=== PATIENT | female | born 1950 | race Hispanic/Latino ===

== ENCOUNTER 2019-10-25 02:05 | Emergency (ER) | payer OTHER ==
[~2019-10-25 02:05] MED LIST: METF-446 PO; ROSU40 PO; VERA180T12 PO
[2019-10-25 02:52] LABS: BASOPHILS % (AUTO) 0.3 % (0.0-5.0); EOSINOPHILS % (AUTO) 5.9 % (0.0-8.0); HEMATOCRIT 38.5 % (36-48); LYMPHOCYTES % (AUTO) 22.8 % (21.0-51.0); MEAN CORPUSCULAR HEMOGLOBIN 27.8 pg (27.0-33.0); MEAN CORPUSCULAR HGB CONC 32.5 g/dL (32.0-36.0); MEAN CORPUSCULAR VOLUME 85.7 fL (79-99); MONOCYTES % (AUTO) 7.9 % (3.0-13.0); NEUTROPHILS % (AUTO) 62.6 % (40.0-77.0); PLATELET COUNT (AUTO) 253 K/uL (130-400); RED BLOOD CELL COUNT(AUTO) 4.49 MIL/uL (4.00-5.50); WHITE BLOOD COUNT (AUTO) 15.1 K/uL (4.8-10.8)
[2019-10-25 03:18] LABS: CREATININE 0.9 mg/dL (0.5-1.5); POTASSIUM 3.2 mmol/L (3.5-5.1)
[2019-10-25 03:22] LABS: APPEARANCE,URINE Clear (CLEAR); BILIRUBIN,URINE Negative (NEGATIVE); COLOR,URINE Yellow (YELLOW); GLUCOSE, URINE (UA) Negative (NEGATIVE); KETONES,URINE Trace mg/dL (NEGATIVE); LEUKOCYTE ESTERASE ,URINE Small (NEGATIVE); NITRATE,URINE Negative (NEGATIVE); OCCULT BLOOD,URINE Trace (NEGATIVE); PH,URINE 5.5 (5.0-8.0); PROTEIN,URINE POS 2+ mg/dL (NEGATIVE)
[2019-10-25 03:23] LABS: ALBUMIN 3.5 g/dL (3.5-5.0); BILIRUBIN,TOTAL 0.3 mg/dL (0.2-1.0); TOTAL PROTEIN, SERUM 7.4 g/dL (6.0-8.3)
[2019-10-25] MEDS ORDERED: SODIUM CHLORIDE 0.9% 1000ML 1,000 ML IV ONE ×2 (03:29→04:05)
[2019-10-25 03:32] LABS: BACTERIA,URINE Few /HPF (None Seen); MUCUS,URINE Moderate LPF (None Seen)
[2019-10-25 03:37] LABS: INR 0.92 (0.85-1.15); PARTIAL THROMBOPLASTIN TIME 24.5 SEC (26.3-35.5); PROTHROMBIN TIME 9.7 SEC (9.6-11.6)
[2019-10-25 03:39] LABS: B-TYPE NATRIURETIC PEPTIDE 23 pg/mL (0-100)
[2019-10-25] MEDS ORDERED: CEFTRIAXONE SODIUM 1 GM ONE (04:05)
== END 2019-10-25 05:22 | disposition home or self-care (01) ==
LOC: EDH 02:05
DX: N39.0 Urinary tract infection, site not specified (principal); E86.0 Dehydration; R00.2 Palpitations; E11.65 Type 2 diabetes mellitus with hyperglycemia; R79.1 Abnormal coagulation profile; I10 Essential (primary) hypertension; E78.00 Pure hypercholesterolemia, unspecified; Z90.710 Acquired absence of both cervix and uterus
CPT/HCPCS: 36415; 71045; 74176; 80053; 81001; 82550; 83605 ×2; 83880; 84484; 85025; 85610; 85730; 87040 ×2; 87077; 87088; 87186; 87804 ×2; 93005; 96361; 96374; 96375; 99284; J0696; J7030 ×2

== ENCOUNTER → 2021-06-03 | Outpatient (CLI) | payer MEDICARE | END | disposition home or self-care (01) | LOC: RAH 08:13 | PROVIDERS: ATTEND Family Medicine | DX: Z12.31 Encounter for screening mammogram for malignant neoplasm of breast (principal) | CPT/HCPCS: 77067 ==

== ENCOUNTER → 2023-01-08 | Outpatient (CLI) | payer MEDICARE ==
[~2023-01-08] MED LIST changes: -VERA180T12 PO; +VERA180T61 PO
== END | disposition home or self-care (01) ==
LOC: RAH 08:32
PROVIDERS: ATTEND Family Medicine
DX: Z12.31 Encounter for screening mammogram for malignant neoplasm of breast (principal)
CPT/HCPCS: 77067

== ENCOUNTER 2025-01-26 11:08 | Inpatient (IN) | payer MEDICARE ==
[~2025-01-26] VITALS: Ht 162.6 cm; Wt 58.1 kg
--- NOTE | 2025-01-26 11:17 | ERN ---
ED Note History of Present Illness Stated Complaint: GENERALIZED ABD PAIN Chief Complaint: Abdominal Pain Time Seen by MD: 11:11 Dictation: PATIENT IS A 75-YEAR-OLD FEMALE COMING IN TODAY WITH COMPLAINTS OF PERIUMBILICAL AND RIGHT LOWER QUADRANT PAIN TENDERNESS WITH FEVER ONSET TWO DAYS AND GETTING WORSE TODAY. SHE HAS HAD NAUSEA WITHOUT VOMITING NO DIARRHEA. SEEN BY HER PRIMARY CARE DOCTOR TODAY WHO SENT HER TO THE EMERGENCY ROOM TO RULE OUT APPENDICITIS Allergies: Coded Allergies: No Known Allergies (Verified Allergy, Severe, 02/06/17) Home Meds Reported Medications Rosuvastatin Calcium (Rosuvastatin Calcium) 40 Mg Tablet, 1 TAB PO DAILY 01/26/25 Bisoprolol Fumarate/Hctz (Bisoprolol-Hctz 10-6.25 mg Tab) 10 Mg-6.25 Mg Tablet, 1 TAB PO DAILY 01/26/25 Fluticasone/Umeclidin/Vilanter (Trelegy Ellipta 100-62.5-25) 100-62.5 Blst.w.dev, 1 PUFF PO DAILY 01/26/25 Vit B Cmplx 3/FA/Vit C/Biotin (Suzanne-Suma Rx Tablet) 1 Mg-60 Mg-300 Mcg Tablet, 1 TAB PO DAILY 01/26/25 Discontinued Reported Medications Rosuvastatin Calcium (Crestor) 40 Mg Tab, 40 MG PO HS, TAB 02/06/17 Metformin HCl (Metformin HCl) 1,000 Mg Tablet, 1000 MG PO BID, TAB 02/06/17 Discontinued Scripts Verapamil HCl (Verapamil ER 180Mg Tab) 180 Mg Tablet.er, 180 MG PO DAILY, #30 TAB 3 Refills Prov:ADRIAN SKINNER MD 02/06/17 Past Medical History Past Medical History: Diabetes-Type II, High Cholesterol, Heart Disease, Hypertension Additional Past Medical Hx: SVT Surgical History: Other Surgical History Other: HEART CATH History: Not Applicable RN Note Reviewed/Agreed w/PFSH: Yes Review of System Dictation CONSTITUTIONAL: NEGATIVE EXCEPT FOR HPI FEVER CHILLS HEAD/FACE: NEGATIVE EXCEPT FOR HPI EENT: NEGATIVE EXCEPT FOR HPI RESPIRATORY: NEGATIVE EXCEPT FOR HPI GASTROINTESTINAL/ABDOMINAL: NEGATIVE EXCEPT FOR HPI PERIUMBILICAL AND RIGHT LOWER QUADRANT PAIN TENDERNESS WITH NAUSEA GENITOURINARY: NEGATIVE EXCEPT FOR HPI MUSCULOSKELETAL: NEGATIVE EXCEPT FOR HPI INTEGUMENTARY: NEGATIVE EXCEPT FOR HPI NEUROLOGICAL/PSYCH: NEGATIVE EXCEPT FOR HPI HEMATOLOGIC/LYMPHATIC: NEGATIVE EXCEPT FOR HPI ALL SYSTEMS NEGATIVE, EXCEPT NOTED ABOVE. 13 POINT REVIEW OF SYSTEMS ASSESSED AND ALL NEGATIVE EXCEPT FOR ABOVE. Initial Vital Sign VS Vital Signs Date Time Temp Pulse Resp B/P (MAP) Pulse Ox O2 Delivery O2 Flow Rate FiO2 01/26/25 11:09 101.8 135 20 133/69 98 Room Air 0 01/26/25 12:09 21 Physical Exam Dictation VITAL SIGNS REVIEWED GENERAL APPEARANCE: ALERT, ORIENTED X 3, MODERATE ACUTE DISTRESS, WELL DEVELOPED, NOURISHED. HEAD AND FACE: NON-TRAUMATIC. EYES: PERRL, PINK CONJUNCTIVAS, EYELID NO TRAUMA, ANTERIOR CHAMBER WITH ARCUS SENILIS. EARS: PINNAS INTACT AND NO SIGNS OF TRAUMA OR ERYTHEMA EAR CANALS CLEAR AND NO DISCHARGE TM NO ERYTHEMA NOSE: NO DISCHARGE, NO BLEEDING. OROPHARYNX: MOUTH NORMAL, TONGUE PINK, PHARYNX CLEAR,NO ERYTHEMA, TONSILS NO EXUDATES, NO ABSCESSES NOTED, MUCOUS MEMBRANE MOIST NECK: SUPPLE, NON-TENDER, NO THYROMEGALY, NO MASSES, NO JVD, NO BRUITS BREAST:DEFERRED CHEST:NO TENDERNESS, NO CREPITUS, NO PARADOXICAL MOVEMENT, NO RETRACTIONS LUNGS:CLEAR, WELL-VENTILATED, SYMMETRIC, NO RALES, NO WHEEZING, NO RHONCHI, NO STRIDOR, GOOD BREATH SOUNDS BILATERALLY HEART: TACHYCARDIA, HEART RATE 120S 130S NO MURMUR, NO GALLOPS VASCULAR: NO PERIPHERAL EDEMA, ABDOMEN: SOFT, POSITIVE BOWEL SOUNDS, NONDISTENDED, NO GUARDING, MODERATE PERIUMBILICAL TENDERNESS WITH PALPATION, REBOUND TENDERNESS RIGHT LOWER QUADRANT RECTAL: DEFERRED GENITAL: DEFERRED NEUROLOGICAL: NORMAL SPEECH, MOTOR FUNCTION INTACT, SENSORY FUNCTION INTACT MUSCULOSKELETAL: NECK NONTENDER, FULL RANGE OF MOTION, BACK NONTENDER, FULL RANGE OF MOTION, EXTREMITIES: NONTENDER, FULL RANGE OF MOTION SKIN: COLOR PINK, DRY, NO TURGOR, NO RASH, NO LACERATIONS, NO ABRASIONS, NO CONTUSIONS. LYMPHATIC: DEFERRED Results (Laboratory/Radiology) Laboratory/Radiology Laboratory Tests Test 01/26/25 11:20 01/26/25 11:24 01/26/25 15:27 01/27/25 05:21 Urine Color LIGHT-ORANGE (YELLOW) Urine Appearance CLOUDY (CLEAR) H Urine pH 5.5 (5.0-8.0) Urine Specific [place] 1.022 (1.001-1.031) Urine Protein 50 mg/dL (NEGATIVE) H Urine Glucose (UA) NEGATIVE mg/dL (NEGATIVE) Urine Ketones 20 mg/dL (NEGATIVE) H Urine Occult Blood +- (TRACE) (NEGATIVE) H Urine Nitrate NEGATIVE (NEGATIVE) Urine Bilirubin 1 mg/dL (NEGATIVE) H Urine Urobilinogen 3 mg/dL (0.2-1.0) H Urine Leukocyte Esterase 250 Thomas/uL (NEGATIVE) H Urine RBC 2-5 /HPF (0-1) H Urine WBC 11-25 /HPF (0-1) H Urine Squamous Epithelial Cells FEW /HPF (0-2) Urine Bacteria None /HPF (None Seen) White Blood Count 30.1 K/uL (4.8-10.8) *H Red Blood Count 4.57 MIL/uL (4.00-5.50) Hemoglobin 13.5 g/dL (12.0-16.0) Hematocrit 41.1 % (36-48) Mean Corpuscular Volume 89.9 fL (79-99) Mean Corpuscular Hemoglobin 29.5 pg (27.0-33.0) Mean Corpuscular Hemoglobin Concent 32.8 g/dL (32.0-36.0) Red Cell Distribution Width 13.7 % (11.0-15.5) Platelet Count 219 K/uL (130-400) Mean Platelet Volume 10.8 fL (7.5-10.5) H Immature Granulocyte % (Auto) 1.2 % (0-1) H Neutrophils (%) (Auto) 86.4 % (40.0-77.0) H Lymphocytes (%) (Auto) 4.0 % (21.0-51.0) L Monocytes (%) (Auto) 8.2 % (3.0-13.0) Eosinophils (%) (Auto) 0.0 % (0.0-8.0) Basophils (%) (Auto) 0.2 % (0.0-5.0) Neutrophils # (Auto) 26.1 K/uL (1.8-7.7) H Lymphocytes # (Auto) 1.2 K/uL (1.0-4.8) Monocytes # (Auto) 2.5 K/uL (0.1-1.0) H Eosinophils # (Auto) 0.00 K/uL (0.00-0.70) Basophils # (Auto) 0.06 K/uL (0.00-0.20) Absolute Immature Granulocyte (auto 0.35 K/uL (0-1) Segmented Neutrophils % 79 % (40-70) H Band Neutrophils % 10 % (0-2) H Lymphocytes % (Manual) 7 % (22-44) L Monocytes % (Manual) 4 % (2-9) Nucleated Red Blood Cells 0.0 % (0.0-0.19) Differential Comment MANUAL DIFFERENTIAL White Cell Morphology Comment CONSISTENT W/DIFF Platelet Morphology Comment ADEQUATE Red Blood Cell Morphology NORMAL Sodium Level 133 mmol/L (136-145) L Potassium Level 3.4 mmol/L (3.5-5.1) L Chloride Level 96 mmol/L (101-111) L Carbon Dioxide Level 22 mmol/L (21-32) Blood Urea Nitrogen 26 mg/dL (7-18) H Creatinine 1.8 mg/dL (0.5-1.0) H Glomerular Filtration Rate Calc 29 mL/min (>90) Random Glucose 105 mg/dL (70-105) Lactic Acid Level 3.8 mmol/L (0.8-2.5) H 1.6 mmol/L (0.8-2.5) Total Calcium 9.7 mg/dL (8.5-10.1) Troponin I High Sensitivity 14 ng/L (4-50) Lipase 27 U/L (16-77) Whole Blood Glucose 50 MG/DL (70-110) *L Bedside Glucose Comment Notified Nurse Test 01/27/25 05:49 01/27/25 06:25 White Blood Count 13.7 K/uL (4.8-10.8) #H Red Blood Count 3.61 MIL/uL (4.00-5.50) #L Hemoglobin 10.8 g/dL (12.0-16.0) L Hematocrit 33.0 % (36-48) L Mean Corpuscular Volume 91.4 fL (79-99) Mean Corpuscular Hemoglobin 29.9 pg (27.0-33.0) Mean Corpuscular Hemoglobin Concent 32.7 g/dL (32.0-36.0) Red Cell Distribution Width 13.5 % (11.0-15.5) Platelet Count 119 K/uL (130-400) #L Mean Platelet Volume 10.7 fL (7.5-10.5) H Immature Granulocyte % (Auto) 0.9 % (0-1) Neutrophils (%) (Auto) 91.2 % (40.0-77.0) H Lymphocytes (%) (Auto) 3.9 % (21.0-51.0) L Monocytes (%) (Auto) 3.6 % (3.0-13.0) Eosinophils (%) (Auto) 0.3 % (0.0-8.0) Basophils (%) (Auto) 0.1 % (0.0-5.0) Neutrophils # (Auto) 12.5 K/uL (1.8-7.7) H Lymphocytes # (Auto) 0.5 K/uL (1.0-4.8) L Monocytes # (Auto) 0.5 K/uL (0.1-1.0) Eosinophils # (Auto) 0.04 K/uL (0.00-0.70) Basophils # (Auto) 0.02 K/uL (0.00-0.20) Absolute Immature Granulocyte (auto 0.13 K/uL (0-1) Nucleated Red Blood Cells 0.0 % (0.0-0.19) Sodium Level 133 mmol/L (136-145) L Potassium Level 3.3 mmol/L (3.5-5.1) L Chloride Level 99 mmol/L (101-111) L Carbon Dioxide Level 22 mmol/L (21-32) Blood Urea Nitrogen 24 mg/dL (7-18) H Creatinine 1.2 mg/dL (0.5-1.0) H Glomerular Filtration Rate Calc 48 mL/min (>90) Random Glucose 181 mg/dL (70-105) #H Total Calcium 8.6 mg/dL (8.5-10.1) Whole Blood Glucose 121 MG/DL (70-110) #H PATIENT: JERILYN PAN MR#: [id number] : 1950 SEX: F AGE: 75 LOCATION: [facility] ORDER 1343 STATUS: REG REPORT#: [id number] SERVICE 134 REASON: Periumbilical and right lower quadrant pain tenderness 30 K WBCs ORDERING PHYSICIAN: VINCENT MALAVE MARKET RESEARCH EXECUTIVE PROCEDURE: ABD PEL WO - CT ABDOMEN/PELVIS W/O CONTRAST CT ABDOMEN/PELVIS W/O CONTRAST HISTORY: Pain COMPARISON: 10/25/2019 TECHNIQUE: Multiple sequential axial images of the abdomen and pelvis were obtained from the dome of the diaphragm through symphysis pubis. Patient was not given contrast through intravenous route. Oral contrast was not given. FINDINGS: No pleural effusion is seen bilaterally. There is no evidence of parenchymal disease or pulmonary nodule of the visualized lower lungs. Degenerative changes of the thoracolumbar spine are present. The heart is not enlarged. Liver measures 15 cm. Gallstones are seen in the gallbladder. Small hiatal hernia is seen. The liver, spleen, adrenal glands and pancreas are unremarkable. There is mild right hydronephrosis with 4 mm renal stone in the right UP junction. Right renal atrophy is seen. No hydronephrosis is seen of left kidney. There is fluid-filled small bowel loops and colon may be related to enterocolitis. No evidence of renal stone is seen. Fecal material is seen in the colon. There are normal size retroperitoneal and mesenteric lymph nodes. No ascites is seen. Atherosclerotic changes are present. There is cecal wall thickening. Nonspecific mesenteric fat stranding is seen worse in the right lower abdomen. Appendix is not well seen limiting evaluation. Pelvic sidewalls are symmetric bilaterally. Bladder is well distended without wall thickening. IMPRESSION: 1. There is mild right hydronephrosis with 4 mm renal stone in the right UP junction. Right renal atrophy is seen. No hydronephrosis is seen of left kidney. There is fluid-filled small bowel loops and colon may be related to enterocolitis. There is cecal wall thickening. Nonspecific mesenteric fat stranding is seen worse in the right lower abdomen. Appendix is not well seen limiting evaluation. 2. Gallstones in the gallbladder. Labs Reviewed?: Yes EKG Comment: EKG SINUS TACHYCARDIA/HEART RATE 114/AXIS NORMAL/EIGHT LEFT ATRIAL ENLARGEMENT ED Course ED Course Orders Procedure Category Date Status Time Cbc With Differential LAB 01/26/25 Complete 11:13 Blood Cult MAL 01/26/25 In Process 11:13 Urinalysis Profile LAB 01/26/25 Complete 11:13 Troponin I High LAB 01/26/25 Complete Sensitivity 11:13 Lactic Acid LAB 01/26/25 Complete 11:13 Basic Metabolic Panel LAB 01/26/25 Complete 11:13 0.9%Nacl 1000ml (Ns PHA 01/26/25 Complete 1000ml) 11:30 Morphine 2mg Syg PHA 01/26/25 Complete (Morphine 2mg Syg) 11:30 Ondansetron 4mg Inj PHA 01/26/25 Complete (Zofran 4mg Inj) 11:30 Lipase LAB 01/26/25 Complete 11:13 12 Lead Ekg Tracing- EKG 01/26/25 Resulted Technical 11:34 Zosyn 3.375gm+Ns 50ml PHA 01/26/25 Complete (Zosyn 3.375gm+Ns 11:36 0.9%Nacl 1000ml (Ns PHA 01/26/25 Complete 1000ml) 12:00 Culture Urine MAL 01/26/25 In Process 11:52 Manual Differential LAB 01/26/25 Complete 11:24 Ct Abdomen/Pelvis W/O CT 01/26/25 Resulted Contrast 13:42 Lactic Acid (Removed) LAB 01/26/25 Complete 14:36 Admit Orders ADM 01/26/25 Transmitted 16:21 Edm Admit Bridge Order ADM 01/26/25 Transmitted 16:21 Cbc With Differential LAB 01/27/25 Complete 04:00 Cbc With Differential LAB 01/28/25 Verified 04:00 Cbc With Differential LAB 01/29/25 Verified 04:00 Basic Metabolic Panel LAB 01/27/25 Complete 04:00 Basic Metabolic Panel LAB 01/28/25 Verified 04:00 Basic Metabolic Panel LAB 01/29/25 Verified 04:00 Vital Signs Every 4 CPOE 01/26/25 Transmitted Hours 17:22 Activity: Ambulate W/ CPOE 01/26/25 Transmitted Assist 17:22 Nothing By Mouth DIET 01/27/25 Transmitted Breakfast O2 Order RT 01/26/25 Transmitted 17:22 Lactated Ringers PHA 01/26/25 In Process 1000ml (Lactated 17:30 Cefepime Hcl 1 Gm PHA 01/26/25 In Process Vial (Maxipime 1 Gm Vi 17:30 Acetaminophen 325 Tab PHA 01/26/25 In Process (Tylenol 325mg Tab 17:30 Acetaminophen 650mg PHA 01/26/25 In Process Supp (Tylenol 650mg 17:30 Ondansetron 4mg Inj PHA 01/26/25 In Process (Zofran 4mg Inj) 17:30 Hydralazine 20mg Inj PHA 01/26/25 In Process (Apresoline 20mg In 17:30 Apply Scds CPOE 01/26/25 Transmitted 17:22 Admit Orders ADM 01/26/25 Transmitted 17:22 Condition: CPOE 01/26/25 Transmitted 17:22 Initiate FITZ 01/26/25 In Process Hyperglycemia Protoco 17:22 Metronidazole PHA 01/26/25 In Process 500mg/100ml Bag 22:00 Pantoprazole 40mg Inj PHA 01/26/25 In Process (Protonix 40mg Inj 21:00 Vte Mod Risk NOTIF 01/26/25 Transmitted Notification 23:13 Notf Eval Request NOTIF 01/26/25 Transmitted Dietitian 23:13 Dextrose 50%-Water PHA 01/27/25 Complete (D50w) 05:23 Current Medications Medications (Trade) Dose Ordered Sig/Jerald Route PRN Reason Start Time Stop Time Status Last Admin Dose Admin Morphine Sulfate (morPHINE 2MG SYG) 2 mg ONCE ONCE IVP 01/26/25 11:30 01/26/25 11:31 DC 01/26/25 11:36 Ondansetron HCl (zoFRAN 4MG INJ) 4 mg ONCE ONCE IVP 01/26/25 11:30 01/26/25 11:31 DC 01/26/25 11:36 Piperacillin Sod/ Tazobactam Sod 50 ml @ 200 mls/hr ONCE STAT IVPB 01/26/25 11:36 01/26/25 11:50 DC 01/26/25 12:47 Sodium Chloride 1,000 ml @ 0 mls/hr ONCE ONCE IV 01/26/25 11:30 01/26/25 11:31 DC 01/26/25 11:29 Sodium Chloride 1,728 ml @ 576 mls/hr ONCE ONCE IV 01/26/25 12:00 01/26/25 14:59 DC 01/26/25 12:47 Vital Signs Date Time Temp Pulse Resp B/P (MAP) Pulse Ox O2 Delivery O2 Flow Rate FiO2 01/27/25 04:22 98.6 99 18 111/65 100 Room Air 01/27/25 04:00 98.2 78 20 121/80 95 Room Air 21 01/27/25 00:00 97.9 89 18 108/57 97 Room Air 2.0 24 01/26/25 22:50 98 Room Air* 0 21 25 22:40 83 18 102/53 97 Room Air* 0 21 01/26/25 21:29 98.2 107 18 101/51 97 Room Air* 0 01/26/25 18:25 98.8 114 19 138/59 97 Room Air* 0 01/26/25 16:38 98.8 104 16 124/60 96 Room Air* 0 01/26/25 12:09 98.8 113 14 122/59 99 Room Air* 0 01/26/25 11:09 101.8 135 20 133/69 98 Room Air 0 1138/LACTIC ACID 3.8. WE WILL GIVE 30 PER KILOS FLUIDS, ZOSYN 3.375 IV PIGGYBACK NOW. ANTICIPATE ADMISSION AFTER RECEIVING RESULTS FROM CT 1410/patient is still pending CT reading. Lactic acidosis has been addressed with IV fluid resuscitation and broad-spectrum antibiotics pending admission 1620/SPOKE WITH JOSEF DUKE HOSPITALIST REVIEWED CT LABS AND INTERVENTIONS FOR SEPSIS TO INCLUDE FLUID RESUSCITATION BROAD-SPECTRUM ANTIBIOTICS HE AGREED TO PROCEED. HEART Score Response (Comments) Value EKG: Repolarization changes 1 Age: > 65yrs (+2) 2 Risk Factors: 1-2 risk factors (+1) 1 Initial Troponin: Normal limit (0) 0 Total 4 Medical Decision Making MDM MDM: DIFFERENTIAL DIAGNOSIS: APPENDICITIS VERSUS DIVERTICULITIS/HE RNIA/UTI/PYELONEPHRITIS/ENTER COLITIS/IBS/ACS RATIONALE: TESTS CONSIDERED AND ORDERED SECONDARY TO SHARED DECISION MAKING INCLUDE: LABS, ECG AND RADIOLOGY PREVIOUS OUTSIDE RECORDS REVIEWED: OLD ER VISITS. RISK OF COMPLICATION AND/OR MORBIDITY OR MORTALITY OF PATIENT MANAGEMENT: MODERATE MEDICATIONS-PER MEDICATION RECONCILIATION NEED FOR HOSPITALIZATION: PATIENT DOES MEET CRITERIA FOR HOSPITALIZATION. PATIENT WILL NEED BE ADMITTED FOR FLUID RESUSCITATION MANAGEMENT OF HER SEPSIS AND COLITIS NEED FOR EMERGENCY MAJOR/MINOR SURGERY: NO THERE ARE NO SOCIAL CONCERNS WITH THIS PATIENT. PRESCRIPTION DRUG MANAGEMENT PRESCRIPTIONS WILL INCLUDE SYMPTOMATIC CARE PATIENT'S PRIOR EXTERNAL MEDICAL RECORDS FROM OTHER ER VISITS WERE REVIEWED BY ME INDICATED. PRIOR TESTING AND RESULTS FROM PREVIOUS VISITS WERE REVIEWED. PRIOR TESTS WERE TAKEN INTO ACCOUNT WITH MEDICAL DECISION MAKING AND RESOURCE UTILIZATION, INDEPENDENT HISTORIAN/HISTORIANS WERE USED TO OBTAIN COMPLETE MEDICAL HISTORY. I INDEPENDENTLY INTERPRETED THE TEST THAT WERE PERFORMED, RESULTS WERE REVIEWED BY ME AND CONSIDERED FINDINGS ON RADIOLOGY IF ORDERED. MEDICAL MANAGEMENT AND EXAMINATION INTERPRETATION DISCUSSIONS WERE HAD BY ME WITH OTHER QUALIFIED HEALTHCARE PROFESSIONALS INDICATED FOR THE PATIENT'S CARE. DX & DISP Disposition: Inpatient Departure Impression: Primary Impression: Infectious colitis, enteritis, and gastroenteritis Additional Impressions: Hyponatremia, KEVIN (acute kidney injury), Acute cystitis with hematuria, Sepsis Critical Time: 30 minutes (Critical Care Procedure NoteAuthorized and Performed by: meTotal critical care time: Approximately 36 minutesDue to a high probability of clinically significant, life threatening deterioration, the patient required my highest level of preparedness to intervene emergently and I personally spent this critical care time directly and personally managing the patient. This critical care time included obtaining a history; examining the patient; pulse oximetry; ordering and review of studies; arranging urgent treatment with development of a management plan; evaluation of patient's response to treatment; frequent reassessment; and, discussions with other providers.This critical care time was performed to assess and manage the high probability of imminent, life-threatening deterioration that could result in multi-organ failure. It was exclusive of separately billable procedures and treating other patients and teaching time.Please see MDM section and the rest of the note for further information on patient assessment and treatment.) Condition: Stable Referrals: CHARLEY BELL MD (PCP) Time of Disposition: 15:16 I have reviewed the case, and I agree with, Diagnosis and Plan I performed a substantive portion of the visit. I have reviewed and personally made and approve the management plan that is documented in the notes by myself with KISHORE/resident. I acknowledged full responsibility for the patient's management plan. 75-year-old female meets sepsis criteria, likely GI in nature. Received 30 cc/kg of fluids, antibiotics. On sepsis focused re-evaluation patient was stable vital signs. Cap refill less than 2 seconds, stable perfusion. VINCENT MALAVE NP Jan 26, 2025 11:17 MILADYS LAZO DO Jan 27, 2025 07:39
[2025-01-26] MEDS: 0.9%NACL 1000ML 1,000 ML IV ONE (11:29)
[2025-01-26] MEDS: ondanSETRON 4MG INJ IVP ONE (11:36)
[2025-01-26] MEDS: morPHINE 2 MG SYG IVP ONE (11:36)
[2025-01-26 11:38] LABS: BASOPHILS # (AUTO) 0.06 K/uL (0.00-0.20); BASOPHILS % (AUTO) 0.2 % (0.0-5.0); HEMATOCRIT 41.1 % (36-48); IMMATURE GRANULOCYTE ABSOLUTE 0.35 K/uL (0-1); LYMPHOCYTES # (AUTO) 1.2 K/uL (1.0-4.8); MEAN CORPUSCULAR HEMOGLOBIN 29.5 pg (27.0-33.0); MEAN CORPUSCULAR HGB CONC 32.8 g/dL (32.0-36.0); MEAN CORPUSCULAR VOLUME 89.9 fL (79-99); MONOCYTES # (AUTO) 2.5 K/uL (0.1-1.0); MONOCYTES % (AUTO) 8.2 % (3.0-13.0); NEUTROPHILS # (AUTO) 26.1 K/uL (1.8-7.7); NEUTROPHILS % (AUTO) 86.4 % (40.0-77.0); PLATELET COUNT (AUTO) 219 K/uL (130-400); RED BLOOD CELL COUNT(AUTO) 4.57 MIL/uL (4.00-5.50); RED CELL DISTRIBUTION WIDTH 13.7 % (11.0-15.5)
[2025-01-26 11:43] LABS: APPEARANCE,URINE CLOUDY (CLEAR); BILIRUBIN,URINE 1 mg/dL (NEGATIVE); COLOR,URINE LIGHT-ORANGE (YELLOW); GLUCOSE, URINE (UA) NEGATIVE (NEGATIVE); KETONES,URINE 20 mg/dL (NEGATIVE); LEUKOCYTE ESTERASE ,URINE 250 Leu/uL (NEGATIVE); NITRATE,URINE NEGATIVE (NEGATIVE); PH,URINE 5.5 (5.0-8.0); PROTEIN,URINE 50 mg/dL (NEGATIVE); UROBILINOGEN,URINE 3 mg/dL (0.2-1.0)
[2025-01-26 11:44] LABS: CREATININE 1.8 mg/dL (0.5-1.0); POTASSIUM 3.4 mmol/L (3.5-5.1)
[2025-01-26 11:52] LABS: ADD UA MICROSCOPIC YES
[2025-01-26 11:56] LABS: WHITE BLOOD COUNT (AUTO) 30.1 K/uL (4.8-10.8)
[2025-01-26 12:00] LABS: MUCUS,URINE FEW LPF (None Seen); SQUAMOUS EPITHELIAL CELL,UR FEW /HPF (0-2)
[2025-01-26] MEDS: ZOSYN 3.375GM+NS 50ML 50 ML IVPB STA (12:47)
--- NOTE | 2025-01-26 13:18 | EKG ---
[facility] Test Date: 2025-01-26 Test Time: 11:46:43 Pat Name: JERILYN PAN Department: [facility] Room: ED Gender: F Hvac Engineer: [id number] : 1950 Requested By: VINCENT MALAVE Order Number: [id number] Reading MD: Robinson Bahena Measurements Intervals [place] Rate: 114 P: 79 DC: 157 QRS: -19 QRSD: 88 T: 65 QT: 328 QTc: 441 Interpretive Statements Sinus tachycardia Atrial premature complexes Compared to ECG 10/25/2019 02:22:32 Sinus rhythm no longer present T-wave abnormality no longer present Possible ischemia no longer present Electronically Signed On 01-26-2025 16:58:35 CDT by Robinson Bahena Please click the below link to view image of tracing.
[2025-01-26 13:52] LABS: BAND NEUTROPHILS % (MANUAL) 10 % (0-2); LYMPHOCYTES % (MANUAL) 7 % (22-44); MAN.DIFF COMMENT-IMPRESSION MANUAL DIFFERENTIAL; MONOCYTES % (MANUAL) 4 % (2-9); PLATELET MORPHOLOGY COMMENT ADEQUATE; SEGMENTED NEUTROPHILS % 79 % (40-70); TOTAL CELLS COUNTED 100; WBC MORPHOLOGY CONSISTENT W/DIFF
--- NOTE | 2025-01-26 14:54 | HMCIMG ---
CT ABDOMEN/PELVIS W/O CONTRAST HISTORY: Pain COMPARISON: 10/25/2019 TECHNIQUE: Multiple sequential axial images of the abdomen and pelvis were obtained from the dome of the diaphragm through symphysis pubis. Patient was not given contrast through intravenous route. Oral contrast was not given. FINDINGS: No pleural effusion is seen bilaterally. There is no evidence of parenchymal disease or pulmonary nodule of the visualized lower lungs. Degenerative changes of the thoracolumbar spine are present. The heart is not enlarged. Liver measures 15 cm. Gallstones are seen in the gallbladder. Small hiatal hernia is seen. The liver, spleen, adrenal glands and pancreas are unremarkable. There is mild right hydronephrosis with 4 mm renal stone in the right UP junction. Right renal atrophy is seen. No hydronephrosis is seen of left kidney. There is fluid-filled small bowel loops and colon may be related to enterocolitis. No evidence of renal stone is seen. Fecal material is seen in the colon. There are normal size retroperitoneal and mesenteric lymph nodes. No ascites is seen. Atherosclerotic changes are present. There is cecal wall thickening. Nonspecific mesenteric fat stranding is seen worse in the right lower abdomen. Appendix is not well seen limiting evaluation. Pelvic sidewalls are symmetric bilaterally. Bladder is well distended without wall thickening. IMPRESSION: 1. There is mild right hydronephrosis with 4 mm renal stone in the right UP junction. Right renal atrophy is seen. No hydronephrosis is seen of left kidney. There is fluid-filled small bowel loops and colon may be related to enterocolitis. There is cecal wall thickening. Nonspecific mesenteric fat stranding is seen worse in the right lower abdomen. Appendix is not well seen limiting evaluation. 2. Gallstones in the gallbladder. CT was performed with one or more following dose reduction techniques: automated exposure control, adjustment of the mA and kv according to patient's size, or use of a iterative reconstruction technique.
[2025-01-26] MEDS ORDERED: hydrALAZine 20MG/ML VIAL IV PRN (17:30)
[2025-01-26] MEDS ORDERED: acetaMINOPHEN 650 MG SUPPOSITORY RC PRN (17:30)
[2025-01-26] MEDS ORDERED: ondanSETRON 4MG INJ IVP PRN (17:30)
[2025-01-26] MEDS: ceFEPime HCL 1 GM VIAL IVP SCH (18:50)
[2025-01-26] MEDS: LACTATED RINGERS 1000ML 1,000 ML IV SCH (18:51)
[2025-01-26] MEDS: acetaMINOPHEN 325 MG TAB PO PRN (18:51)
[2025-01-26] MEDS: PANTOPrazole 40 MG/VIAL IVP SCH (21:12)
[2025-01-26] MEDS: metRONIDazole 500MG/100ML BAG 100 ML IVPB SCH (21:12)
[2025-01-26 21:40] VITALS: TEMP 98.2
[2025-01-26 22:50] VITALS: O2SAT 98
[2025-01-26] MEDS ORDERED: ROSU40TA88 PO (23:26)
[2025-01-26] MEDS ORDERED: BISO-1 PO (23:26)
[2025-01-26] MEDS ORDERED: FOLI1TAB85 PO (23:26)
[2025-01-26] MEDS ORDERED: FLUT1BLS3 PO (23:26)
[2025-01-27] VITALS (9 sets, daily range): BP systolic 101–136; BP diastolic 49–80; PULSE 78–101; RESP 18–22; TEMP 97.9–98.6; O2SAT 100
[2025-01-27] MEDS: DEXTROSE 50%-WATER 50 ML DISP.SYRIN IV ONE ×2 (05:26→11:40)
[2025-01-27 06:05] LABS: BASOPHILS # (AUTO) 0.02 K/uL (0.00-0.20); BASOPHILS % (AUTO) 0.1 % (0.0-5.0); EOSINOPHILS # (AUTO) 0.04 K/uL (0.00-0.70); EOSINOPHILS % (AUTO) 0.3 % (0.0-8.0); IMMATURE GRANULOCYTE ABSOLUTE 0.13 K/uL (0-1); LYMPHOCYTES # (AUTO) 0.5 K/uL (1.0-4.8); LYMPHOCYTES % (AUTO) 3.9 % (21.0-51.0); MEAN CORPUSCULAR HEMOGLOBIN 29.9 pg (27.0-33.0); MEAN CORPUSCULAR HGB CONC 32.7 g/dL (32.0-36.0); MEAN CORPUSCULAR VOLUME 91.4 fL (79-99); MONOCYTES # (AUTO) 0.5 K/uL (0.1-1.0); MONOCYTES % (AUTO) 3.6 % (3.0-13.0); NEUTROPHILS # (AUTO) 12.5 K/uL (1.8-7.7); NEUTROPHILS % (AUTO) 91.2 % (40.0-77.0); PLATELET COUNT (AUTO) 119 K/uL (130-400); RED BLOOD CELL COUNT(AUTO) 3.61 MIL/uL (4.00-5.50); RED CELL DISTRIBUTION WIDTH 13.5 % (11.0-15.5); WHITE BLOOD COUNT (AUTO) 13.7 K/uL (4.8-10.8)
[2025-01-27 06:27] LABS: CREATININE 1.2 mg/dL (0.5-1.0); POTASSIUM 3.3 mmol/L (3.5-5.1)
--- NOTE | 2025-01-27 11:30 | NUR ---
accucheck 49, asymptomatic. d50% injection administered. Julia BLACK aware
[2025-01-27] MEDS: DEXTROSE 5%-LACTATED RINGERS 1,000 ML IV SCH (11:44)
[2025-01-27] MEDS: acetaMINOPHEN WITH coDEINE 1 TAB TAB PO PRN (14:44)
--- NOTE | 2025-01-27 16:04 | NUR ---
DCP -- Home Patient states lives with Umer Mosher, Son [phone] and nephew in a rental house with walk in shower. States she is retired from [employer] and [employer], remains independent and drives self. States able to complete ADL's on her own. Denies medical devices. Denies home health services, home care provider or dialysis. PCP - Tarah Parikh MD Pharmacy - [facility]. Upon discharge, Umer Mosher, Son [phone] home and assist with care, as needed. Addendum: 01/27/25 at 1608 by NELIA PATHAK RN CM Amended: Links added.
--- NOTE | 2025-01-27 16:12 | NUR ---
Notes: Met with pt. Pt reports good appetite, 100% PO intake, NKFA, No N/V, Last BM 01/27/2025, visits with PCP every 3 months, has never had a food allergy test, BG monitoring every morning, 80 lb. (38%)wt. loss due to Mounjaro medication in 1 year, has sustained wt]. Spoke to pt about Enterocolitis and its relation to food allergies specifically shellfish. Pt reports eating oysters and having diarrhea for a week. Suggested to get a food allergy test done with PCP. Pt reports she has an appointment with PCP on 02/10/2025 and will get that done. Spoke to nursing. Nursing reports pt not tolerating regular food, pt is currently on clear liquid ability to tolerate advancement, does not foresee pt needing EN. Preformed NFPE during visit. Observed moderate muscle loss due to slightly depressed buccal and interosseous muscle, protruding clavicle and deltoid, and moderate muscle loss due to thin, minimal gastrocnemius muscle. Nutrition Concerns: Recommendations: Advance to GI Soft/Obion Diet + 60 gm cho + HH diet + low residue when medically feasible + Ensure Max TID with all days FA: shellfish Provide NCS while Pt on CLD + prostat jello TID w/ trays Food allergy test administered by PCP Order A1C and lipid panel with AM labs Order vit. D and b12 labs to rule out deficiencies with AM labs Monitor weight, Reweigh as possible Monitor electrolytes, Replenish electrolytes as protocol Monitor goals of care RD to follow + available for consult per protocol Dietetic Student, Adry Dorsey Addendum: 01/27/25 at [address] Amended: Links added.
[2025-01-27 17:06] LABS: CHOLESTEROL 128 mg/dL (<200); HDL CHOLESTEROL 53 mg/dL (35-85); LDL DIRECT 45 mg/dL (0-99); TRIGLYCERIDES 79 mg/dL (30-200)
--- NOTE | 2025-01-27 19:11 | HP ---
[facility] HISTORY & PHYSICAL Date Patient Seen: Jan 27, 2025 Time of Visit: 1214 Supervising Physician: Dr. Conn Primary Care Physician: Dr. Tarah Parikh Outpatient Specialists: [ ] Inpatient Consults: na PROBLEM LIST: Acute severe sepsis without shock likely secondary to enterocolitis and complicated cystitis Acute kidney injury likely secondary to ATN Right hydronephrosis with4 mm renal stone in the right up junction per CT abdomen 01/26/[address] abdomen 01/26/2025 Acute complicated cystitis Hypertension Hyperlipidemia Diabetes mellitus type 2 with hyperglycemia HPI: PATIENT IS A 75-YEAR-OLD FEMALE COMING IN TODAY WITH COMPLAINTS OF PERIUMBILICAL AND RIGHT LOWER QUADRANT PAIN TENDERNESS WITH FEVER ONSET TWO DAYS AND GETTING WORSE TODAY. SHE HAS HAD NAUSEA WITHOUT VOMITING NO DIARRHEA. SEEN BY HER PRIMARY CARE DOCTOR TODAY WHO SENT HER TO THE EMERGENCY ROOM TO RULE OUT APPENDICITIS Patient was seen and examined by bedside with no family present. Patient is awake alert able to answer simple questions appropriately. Patient denies any chest pain or shortness of breadth. Denies any nausea vomiting does report abdominal pain, patient is tender to palpation to right upper quadrant and right lower quadrant. Patient's CT abdomen shows right hydronephrosis with4 mm renal stone to the right upper junction, and acute enterocolitis. Patient also noted to have urinary tract infection we will follow up with the urine culture. At this time we will order a abdominal ultrasound and follow up with results. Patient to continue on IV antibiotics. Patient's serum creatinine level noted to be trending down today 1.2 yesterday 1.8. Patient's WBCs trending down today 13.7 yesterday 30.1. We will continue to monitor closely. PAST MEDICAL HX: see above PAST SURGICAL HX: noncontributory SOCIAL HISTORY: No tobacco, ETOH, or illicit drug use Coded Allergies: No Known Allergies (Verified Allergy, Severe, 02/06/17) REVIEW OF SYSTEMS: 12 point ROS reviewed with patient. Pertinent positives mentioned above. Otherwise negative. PHYSICAL EXAM: GENERAL: alert, weak, awake oriented x 3 HEENT: EOMI, Sclera non icteric, moist mucosa NECK: Supple, no JVD, trachea midline LUNGS: Clear breath sounds bilaterally. No wheezes HEART: Regular rate and rhythm. Normal S1 and S2, without murmurs ABD: Abdomen soft, nontender. Bowel sounds present EXT: No clubbing cyanosis or edema NEURO: Alert and oriented to person, follows commands Vital Signs (last 8hr) Date Time Temp Pulse Resp B/P (MAP) Pulse Ox O2 Delivery O2 Flow Rate FiO2 01/27/25 16:32 98.1 90 19 110/53 96 01/27/25 12:00 97.9 85 22 106/49 98 LABS: Hematology Labs: Test 01/27/25 05:49 01/26/25 11:24 Range/Units White Blood Count 13.7 #H 4.8-10.8 K/uL Red Blood Count 3.61 #L 4.00-5.50 MIL/uL Hemoglobin 10.8 L 12.0-16.0 g/dL Hematocrit 33.0 L 36-48 % Mean Corpuscular Volume 91.4 79-99 fL Mean Corpuscular Hemoglobin 29.9 27.0-33.0 pg Mean Corpuscular Hemoglobin Concent 32.7 32.0-36.0 g/dL Red Cell Distribution Width 13.5 11.0-15.5 % Platelet Count 119 #L 130-400 K/uL Mean Platelet Volume 10.7 H 7.5-10.5 fL Immature Granulocyte % (Auto) 0.9 0-1 % Neutrophils (%) (Auto) 91.2 H 40.0-77.0 % Lymphocytes (%) (Auto) 3.9 L 21.0-51.0 % Monocytes (%) (Auto) 3.6 3.0-13.0 % Eosinophils (%) (Auto) 0.3 0.0-8.0 % Basophils (%) (Auto) 0.1 0.0-5.0 % Neutrophils # (Auto) 12.5 H 1.8-7.7 K/uL Lymphocytes # (Auto) 0.5 L 1.0-4.8 K/uL Monocytes # (Auto) 0.5 0.1-1.0 K/uL Eosinophils # (Auto) 0.04 0.00-0.70 K/uL Basophils # (Auto) 0.02 0.00-0.20 K/uL Absolute Immature Granulocyte (auto 0.13 0-1 K/uL Nucleated Red Blood Cells 0.0 0.0-0.19 % Segmented Neutrophils % 79 H 40-70 % Band Neutrophils % 10 H 0-2 % Lymphocytes % (Manual) 7 L 22-44 % Monocytes % (Manual) 4 2-9 % Differential Comment MANUAL DIFFERENTIAL White Cell Morphology Comment CONSISTENT W/DIFF Platelet Morphology Comment ADEQUATE Red Blood Cell Morphology NORMAL Chemistry Labs: Test 01/27/25 15:46 01/27/25 11:08 01/27/25 05:49 01/26/25 15:27 Range/Units Whole Blood Glucose 75 # 70-110 MG/DL Bedside Glucose Comment Notified Nurse Sodium Level 133 L 136-145 mmol/L Potassium Level 3.3 L 3.5-5.1 mmol/L Chloride Level 99 L 101-111 mmol/L Carbon Dioxide Level 22 21-32 mmol/L Blood Urea Nitrogen 24 H 7-18 mg/dL Creatinine 1.2 H 0.5-1.0 mg/dL Glomerular Filtration Rate Calc 48 >90 mL/min Random Glucose 181 #H 70-105 mg/dL Hemoglobin A1c 5.0 4.0-6.0 % Estimated Average Glucose (eAG) 97 70-126 mg/dL Total Calcium 8.6 8.5-10.1 mg/dL Triglycerides Level 79 30-200 mg/dL Cholesterol Level 128 <200 mg/dL LDL Cholesterol 45 0-99 mg/dL HDL Cholesterol 53 35-85 mg/dL Vitamin B12 Level 366 193-986 pg/mL Lactic Acid Level 1.6 0.8-2.5 mmol/L Test 01/26/25 11:24 Range/Units Troponin I High Sensitivity 14 4-50 ng/L Lipase 27 16-77 U/L DIAGNOSTICS / RADIOLOGY RESULTS: na PLAN Follow up with abdominal ultrasound Follow up with the urine culture Continue cefepime1 g every 8 hours Continue metronidazole 500 mg every 8 hours Continue to monitor serum creatinine level closely Repeat labs in a.m. Continue gentle IV hydration Continue Flomax 0.4 mg daily We will hold patient's hydrochlorothiazide due KEVIN and hyponatremia NEURO: Minimize central acting medications as possible. Maintain fall precautions, adequate lighting during the day PULMONARY: Supplemental 02 as needed. Maintain aspiration precautions at all times CARDIOVASCULAR: Follow hemodynamics. Vital signs per facility protocol GI & NUTRITION: Continue with nutritional support. Continue stool softeners and laxatives as needed. KIDNEYS & ELECTROLYTES: Strict monitoring of intake, output and overall fluid balance. Avoid nephrotoxic medications to the extent possible. Medications to be dosed according to renal function. Monitor electrolytes and replace as needed ENDOCRINE: Maintain blood glucose between 100-180 at all times. Hypoglycemia protocol in place INFECTIOUS DISEASE: Trend temperature, WBC and procalcitonin level Follow cultures, deescalate antibiotics as soon as possible. Panculture if new onset fever ONCOLOGY/HEMATOLOGY/COAGULATION: Monitor for s/s of bleeding Monitor hemoglobin, coagulation studies as needed SKIN: Pressure ulcer prevention per facility protocol Specialty mattress ORTHO/REHAB: Continue PT/OT Prophylaxis: Continue GI and DVT prophylaxis Code Status: Full Resuscitation Disposition: TBD Other: Case discussed with supervising physician plan of care agreed upon SHEILA ROSALES Jan 27, 2025 19:11
[2025-01-28] VITALS (7 sets, daily range): BP systolic 102–127; BP diastolic 53–66; PULSE 82–109; RESP 17–18; TEMP 97.9–99.6; O2SAT 98
[2025-01-28 04:57] LABS: BASOPHILS # (AUTO) 0.02 K/uL (0.00-0.20); BASOPHILS % (AUTO) 0.2 % (0.0-5.0); EOSINOPHILS # (AUTO) 0.23 K/uL (0.00-0.70); EOSINOPHILS % (AUTO) 1.7 % (0.0-8.0); HEMATOCRIT 29.6 % (36-48); IMMATURE GRANULOCYTE ABSOLUTE 0.06 K/uL (0-1); LYMPHOCYTES # (AUTO) 0.7 K/uL (1.0-4.8); LYMPHOCYTES % (AUTO) 5.2 % (21.0-51.0); MEAN CORPUSCULAR HGB CONC 33.8 g/dL (32.0-36.0); MEAN CORPUSCULAR VOLUME 88.9 fL (79-99); MONOCYTES # (AUTO) 1.2 K/uL (0.1-1.0); NEUTROPHILS % (AUTO) 83.4 % (40.0-77.0); PLATELET COUNT (AUTO) 144 K/uL (130-400); RED BLOOD CELL COUNT(AUTO) 3.33 MIL/uL (4.00-5.50); RED CELL DISTRIBUTION WIDTH 13.6 % (11.0-15.5); WHITE BLOOD COUNT (AUTO) 13.2 K/uL (4.8-10.8)
[2025-01-28 05:23] LABS: CREATININE 1.2 mg/dL (0.5-1.0); POTASSIUM 3.2 mmol/L (3.5-5.1)
[2025-01-28] MEDS: atorVAStatin 40 MG TABLET PO SCH (07:58)
[2025-01-28] MEDS: Vitamin B Complex/Vit C/Folic Acid PO SCH (07:59)
[2025-01-28] MEDS: tamSULOsin HCL 0.4 MG CAP.ER.24H PO SCH (07:59)
[2025-01-28] MEDS: Fluticasone/Umeclidin/Vilanter (Trelegy Ellipta 100-62.5-25MCG) IH SCH (07:59)
[2025-01-28] MEDS ORDERED: PoTASSium chloRIDE 20MEQ/100ML 100 ML IV PRN (09:00)
[2025-01-28] MEDS ORDERED: PoTASSium chloRIDE 20MEQ ER 20 MEQ ERTAB PO PRN (09:00)
[2025-01-28] MEDS ORDERED: PoTASSium chl 10% ELIXIR 20MEQ 20 MEQ/15 ML UDCUP PO PRN (09:00)
[2025-01-28] MEDS: PoTASSium chloRIDE 20MEQ ER 20 MEQ ERTAB PO ONE (09:37)
--- NOTE | 2025-01-28 12:20 | HMCIMG ---
US ABDOMINAL COMPLETE HISTORY: Pain COMPARISON: CT from 01/26/2025 TECHNIQUE: Multiple transverse and longitudinal ultrasound images of the abdomen were obtained. FINDINGS: Abdominal aorta and inferior vena cava are unremarkable. The visualized portion of the pancreas is within normal limits. Liver measures 16.8 cm. Liver is echogenic consistent with liver parenchymal disease. Stones are seen in the gallbladder. Common duct measures 6 mm. No evidence of gallbladder wall thickening is seen. Both kidneys are seen. Right kidney measures 9.3 x 3.3 x 4.8 cm. Left kidney measures 11.1 x 4.8 x 4.6 cm. No hydronephrosis is seen of the both kidneys. The spleen is grossly unremarkable. IMPRESSION: 1. Gallstones. Borderline ductal dilatation is seen. 2. No hydronephrosis is seen.
--- NOTE | 2025-01-28 13:27 | NUR ---
Notes Met with pt. Pt fair appetite, reports 50-75% PO intake, 100% supplement intake, and Last BM 01/28/2025, diarrhea, and stomach pain not as painful as before. Encourage pt to eat ProStat Jello since it has extra calories and protein. ProStat Jello TId with all trays and FA: Shellfish placed on kitchen board Pending Vit D level. RD to follow diet advancement and tolerance Recommendation Continue to provide NCS while Pt on CLD + Prostat Jello TID w/ trays Advance to GI Soft/[place] Diet + 60GMCCD + HH diet + low residue + Ensure Max TID when medically feasible FA: shellfish Monitor weight, reweigh as possible Monitor electrolytes, replenish electrolytes as protocol Monitor goals of care RD to follow + available for consult per protocol Dietetic Student, Adry Dorsey Addendum: 01/28/25 at [address] Amended: Links added.
--- NOTE | 2025-01-28 14:43 | PN ---
[facility] PROGRESS NOTE Date Patient Seen: Jan 28, 2025 Time of Visit: 1126 Supervising Physician: Dr. Conn Primary Care Physician: Dr. Tarah Parikh Outpatient Specialists: [ ] Inpatient Consults: na PROBLEM LIST: Acute severe sepsis without shock likely secondary to enterocolitis and complicated cystitis Acute kidney injury likely secondary to ATN Right hydronephrosis with4 mm renal stone in the right up junction per CT abd omen 01/26/[address] abdomen 01/26/2025 Acute complicated cystitis Hypertension Hyperlipidemia Diabetes mellitus type 2 with hyperglycemia INTERVAL HISTORY: 01/28 patient was seen and examined by bedside with no family present. Patient is awake alert able to answer simple questions appropriately. Patient denies any chest pain or shortness of breadth. Denies any nausea or vomiting, does report minimal abdominal pain, but is no longer sensitive to palpation to right upper quadrant or right lower quadrant. Patient's abdominal ultrasound unremarkable. Patient's WBCs noted to be 13.2 serum creatinine level 1.2 we will repeat labs tomorrow morning and continue to monitor closely. Patient's blood cultures have been negative for 8 hours, patient's urine culture showing a contaminant. We will advance patient's diet, if no acute events occurred overnight and patient tolerates diet plan is for discharge tomorrow morning. REVIEW OF SYSTEMS: 12 point ROS reviewed with patient. Pertinent positives mentioned above. Otherwise negative. PHYSICAL EXAM: GENERAL: alert, weak, awake oriented x 3 HEENT: EOMI, Sclera non icteric, moist mucosa NECK: Supple, no JVD, trachea midline LUNGS: Clear breath sounds bilaterally. No wheezes HEART: Regular rate and rhythm. Normal S1 and S2, without murmurs ABD: Abdomen soft, nontender. Bowel sounds present EXT: No clubbing cyanosis or edema NEURO: Alert and oriented to person, follows commands Vital Signs (last 8hr) Date Time Temp Pulse Resp B/P (MAP) Pulse Ox O2 Delivery O2 Flow Rate FiO2 01/28/25 12:00 98.4 98 18 127/66 99 Room Air 01/28/25 08:00 98.1 83 18 111/53 98 Room Air 21 01/28/25 08:00 98 Room Air* 0 21 LABS: Hematology Labs: Test 01/28/25 04:37 Range/Units White Blood Count 13.2 H 4.8-10.8 K/uL Red Blood Count 3.33 L 4.00-5.50 MIL/uL Hemoglobin 10.0 L 12.0-16.0 g/dL Hematocrit 29.6 L 36-48 % Mean Corpuscular Volume 88.9 79-99 fL Mean Corpuscular Hemoglobin 30.0 27.0-33.0 pg Mean Corpuscular Hemoglobin Concent 33.8 32.0-36.0 g/dL Red Cell Distribution Width 13.6 11.0-15.5 % Platelet Count 144 130-400 K/uL Mean Platelet Volume 10.8 H 7.5-10.5 fL Immature Granulocyte % (Auto) 0.5 0-1 % Neutrophils (%) (Auto) 83.4 H 40.0-77.0 % Lymphocytes (%) (Auto) 5.2 L 21.0-51.0 % Monocytes (%) (Auto) 9.0 3.0-13.0 % Eosinophils (%) (Auto) 1.7 0.0-8.0 % Basophils (%) (Auto) 0.2 0.0-5.0 % Neutrophils # (Auto) 11.0 H 1.8-7.7 K/uL Lymphocytes # (Auto) 0.7 L 1.0-4.8 K/uL Monocytes # (Auto) 1.2 H 0.1-1.0 K/uL Eosinophils # (Auto) 0.23 0.00-0.70 K/uL Basophils # (Auto) 0.02 0.00-0.20 K/uL Absolute Immature Granulocyte (auto 0.06 0-1 K/uL Nucleated Red Blood Cells 0.0 0.0-0.19 % Chemistry Labs: Test 01/28/25 12:13 01/28/25 04:37 01/27/25 11:08 01/27/25 05:49 Range/Units Whole Blood Glucose 87 70-110 MG/DL Sodium Level 133 L 136-145 mmol/L Potassium Level 3.2 L 3.5-5.1 mmol/L Chloride Level 102 101-111 mmol/L Carbon Dioxide Level 25 21-32 mmol/L Blood Urea Nitrogen 15 7-18 mg/dL Creatinine 1.2 H 0.5-1.0 mg/dL Glomerular Filtration Rate Calc 48 >90 mL/min Random Glucose 109 H 70-105 mg/dL Total Calcium 8.9 8.5-10.1 mg/dL Bedside Glucose Comment Notified Nurse Hemoglobin A1c 5.0 4.0-6.0 % Estimated Average Glucose (eAG) 97 70-126 mg/dL Triglycerides Level 79 30-200 mg/dL Cholesterol Level 128 <200 mg/dL LDL Cholesterol 45 0-99 mg/dL HDL Cholesterol 53 35-85 mg/dL Vitamin B12 Level 366 193-986 pg/mL Test 01/26/25 15:27 Range/Units Lactic Acid Level 1.6 0.8-2.5 mmol/L DIAGNOSTICS / RADIOLOGY RESULTS: na PLAN Advance patient's diet as tolerated If tolerates diet and no acute events occurred overnight plan is for discharge in a.m. Follow up with the urine culture, showing possible contaminant Continue cefepime1 g every 8 hours Continue metronidazole 500 mg every 8 hours Continue to monitor serum creatinine level closely Repeat labs in a.m. Continue gentle IV hydration Continue Flomax 0.4 mg daily We will continue to hold patient's hydrochlorothiazide due KEVIN and hyponatremia NEURO: Minimize central acting medications as possible. Maintain fall precautions, adequate lighting during the day PULMONARY: Supplemental 02 as needed. Maintain aspiration precautions at all times CARDIOVASCULAR: Follow hemodynamics. Vital signs per facility protocol GI & NUTRITION: Continue with nutritional support. Continue stool softeners and laxatives as needed. KIDNEYS & ELECTROLYTES: Strict monitoring of intake, output and overall fluid balance. Avoid nephrotoxic medications to the extent possible. Medications to be dosed according to renal function. Monitor electrolytes and replace as needed ENDOCRINE: Maintain blood glucose between 100-180 at all times. Hypoglycemia protocol in place INFECTIOUS DISEASE: Trend temperature, WBC and procalcitonin level Follow cultures, deescalate antibiotics as soon as possible. Panculture if new onset fever ONCOLOGY/HEMATOLOGY/COAGULATION: Monitor for s/s of bleeding Monitor hemoglobin, coagulation studies as needed SKIN: Pressure ulcer prevention per facility protocol Specialty mattress ORTHO/REHAB: Continue PT/OT Prophylaxis: Continue GI and DVT prophylaxis Code Status: Full Resuscitation Disposition: TBD Other: Case discussed with supervising physician plan of care agreed upon SHEILA ROSALES Jan 28, 2025 14:43
[2025-01-29 00:14] VITALS: BP 108/54; PULSE 92; RESP 18; TEMP 98.7
[2025-01-29 04:00] VITALS: BP_SYST 113; BP_SYST 141; BP_DIAS 56; BP_DIAS 85; PULSE 60; PULSE 97; RESP 18; RESP 20; TEMP 97.6; TEMP 98.5
[2025-01-29 06:08] LABS: BASOPHILS # (AUTO) 0.03 K/uL (0.00-0.20); BASOPHILS % (AUTO) 0.2 % (0.0-5.0); EOSINOPHILS # (AUTO) 0.28 K/uL (0.00-0.70); EOSINOPHILS % (AUTO) 1.9 % (0.0-8.0); HEMATOCRIT 30.9 % (36-48); IMMATURE GRANULOCYTE ABSOLUTE 0.07 K/uL (0-1); LYMPHOCYTES # (AUTO) 1.2 K/uL (1.0-4.8); LYMPHOCYTES % (AUTO) 8.3 % (21.0-51.0); MEAN CORPUSCULAR HEMOGLOBIN 29.3 pg (27.0-33.0); MEAN CORPUSCULAR VOLUME 88.8 fL (79-99); MONOCYTES # (AUTO) 1.4 K/uL (0.1-1.0); MONOCYTES % (AUTO) 9.5 % (3.0-13.0); NEUTROPHILS # (AUTO) 11.7 K/uL (1.8-7.7); NEUTROPHILS % (AUTO) 79.6 % (40.0-77.0); PLATELET COUNT (AUTO) 168 K/uL (130-400); RED BLOOD CELL COUNT(AUTO) 3.48 MIL/uL (4.00-5.50); RED CELL DISTRIBUTION WIDTH 13.8 % (11.0-15.5); WHITE BLOOD COUNT (AUTO) 14.7 K/uL (4.8-10.8)
[2025-01-29 06:21] LABS: POTASSIUM 3.2 mmol/L (3.5-5.1)
[2025-01-29 07:50] VITALS: BP 112/59; PULSE 89; RESP 20; TEMP 98.3
[2025-01-29 08:00] VITALS: O2SAT 93
[2025-01-29 11:06] VITALS: BP 114/58; PULSE 85; RESP 18; TEMP 98.5
--- NOTE | 2025-01-29 13:26 | NUR ---
Notes Met with pt. Pt reports good appetite, 75% PO intake, continues to have diarrhea, no longer has stomach pain, and last BM 01/29/2025. Offered pt BanaTrol per diarrhea, pt agreed. Discussed with pt about lipid panel labs, A1C and low Vit D. Educated pt on the importance of vitamin D. Advice pt to gather medical records to take to her PCP, pt agreed. Recommendation Continue GI Soft/[place] Diet + 60GMCCD + HH diet + low residue Continue to provide Prostat Jello TID with all trays Provided Banatrol w/ apple sauce TID with all trays per diarrhea Monitor weight, reweigh as possible Monitor electrolytes, replenish electrolytes as protocol Monitor goals of care RD to follow + available for consult per protocol Dietetic Student, Adry Dorsey Addendum: 01/29/25 at [address] Amended: Links added.
--- NOTE | 2025-01-29 14:31 | DS ---
[facility] DISCHARGE SUMMARY Date Patient Seen: Jan 29, 2025 Time of Visit: 1129 Supervising Physician: Dr. Yo Primary Care Physician: Dr. Tarah Parikh Outpatient Specialists: [ ] Inpatient Consults: na PROBLEM LIST: Acute severe sepsis without shock likely secondary to enterocolitis and compli cated cystitis, resolved Acute kidney injury likely secondary to ATN , resolved Right hydronephrosis with4 mm renal stone in the right up junction per CT abdomen 01/26/2025, we will follow up outpatient with Urology Acute enterocolitis per CT abdomen 01/26/2025 , we will complete treatment with oral antibiotics Acute complicated cystitis, we will complete treatment with oral antibiotics Hypertension Hyperlipidemia Diabetes mellitus type 2 with hyperglycemia HOSPITAL COURSE: HPI (per admitting provider)PATIENT IS A 75-YEAR-OLD FEMALE COMING IN TODAY WITH COMPLAINTS OF PERIUMBILICAL AND RIGHT LOWER QUADRANT PAIN TENDERNESS WITH FEVER ONSET TWO DAYS AND GETTING WORSE TODAY. SHE HAS HAD NAUSEA WITHOUT VOMITING NO DIARRHEA. SEEN BY HER PRIMARY CARE DOCTOR TODAY WHO SENT HER TO THE EMERGENCY ROOM TO RULE OUT APPENDICITIS Patient was seen and examined by bedside with no family present. The patient is awake alert able to answer simple questions appropriately. Patient denies any chest pain or shortness of breadth. Denies any nausea vomiting or abdominal pain. SHe is tolerating p.o. diet. Diarrhea has improved. Instructed patient will be getting discharged today and will need to follow up with PCP within 3-5 days upon discharge, along with following up with Urology within 3-5 days upon discharge. Patient voices understanding and agrees with plan has no questions at this time The patient was treated for the following problems: ACTIVE PROBLEM LIST FOR THE HOSPITALIZATION: CHRONIC PROBLEMS: continue previous management per PCP unless otherwise indica vielka G[employer]UCER FINDINGS/RECOMMENDATIONS: [ ] PROCEDURES: as mentioned above DISCHARGE MEDICATIONS: Levaquin 750 daily x7 days Flagyl 500 mg t.i.d. x7 days Flomax 0.4 mg daily Pt hemodynamically stable and afebrile at time of discharge. PCP notified of patients admission, hospital course and discharge. Continued Medications: Bisoprolol Fumarate/Hctz (Bisoprolol-Hctz 10-6.25 mg Tab) 10 Mg-6.25 Mg Tablet 1 TAB PO DAILY Fluticasone/Umeclidin/Vilanter (Trelegy Ellipta 100-62.5-25) 100-62.5 Blst.w.dev 1 PUFF PO DAILY Rosuvastatin Calcium (Rosuvastatin Calcium) 40 Mg Tablet 1 TAB PO DAILY Vit B Cmplx 3/FA/Vit C/Biotin (Suzanne-Suma Rx Tablet) 1 Mg-60 Mg-300 Mcg Tablet 1 TAB PO DAILY PHYSICAL EXAM: GENERAL: alert, weak, awake oriented x 3 HEENT: EOMI, Sclera non icteric, moist mucosa NECK: Supple, no JVD, trachea midline LUNGS: Clear breath sounds bilaterally. No wheezes HEART: Regular rate and rhythm. Normal S1 and S2, without murmurs ABD: Abdomen soft, nontender. Bowel sounds present EXT: No clubbing cyanosis or edema NEURO: Alert and oriented to person, follows commands FOLLOW-UP: Follow-up with PCP in 2-3 days Follow up with Urology within 3-5 days upon discharge RECOMMENDATIONS: See Discharge Instructions This case was seen and discussed with my supervising physician. 35 minutes spent on discharge process, including evaluation of the patient, discussion with nursing staff, medication reconciliation and follow-up appointments SHEILA ROSALES Jan 29, 2025 14:31
[2025-01-29 16:00] VITALS: BP 112/62; PULSE 118; RESP 18; TEMP 98
--- NOTE | 2025-01-29 16:58 | NUR ---
PATIENT DISCHARGE HOME ID BAND AND IV REMOVED. DISCHARGE INSTRUCTIONS EXPLAINED AND GIVEN TO PATIENT. PATIENT VERBALIZED UNDERSTANDING. BELONGINGS PACKED AND TAKEN BY PATIENT.WHEELED DOWN TO PRIVATE CAR.
== END 2025-01-29 16:40 | disposition home or self-care (01) | DRG 871 ==
LOC: EDH 11:08 → EDHIP 16:21 → 3DH 21:32
PROVIDERS: ADMIT Internal Medicine Critical Care Medicine; ATTEND Internal Medicine Critical Care Medicine
DX: A41.9 Sepsis, unspecified organism (principal); N17.0 Acute kidney failure with tubular necrosis; A09 Infectious gastroenteritis and colitis, unspecified; N13.6 Pyonephrosis; I10 Essential (primary) hypertension; R65.20 Severe sepsis without septic shock; E11.65 Type 2 diabetes mellitus with hyperglycemia; E78.00 Pure hypercholesterolemia, unspecified; Z79.899 Other long term (current) drug therapy; Z79.01 Long term (current) use of anticoagulants; Z79.84 Long term (current) use of oral hypoglycemic drugs; Z87.442 Personal history of urinary calculi; Z99.81 Dependence on supplemental oxygen
CPT/HCPCS: 36415; 74176; 76700; 80048; 80061; 81001; 82306; 82607; 82948; 83036; 83605; 83690; 84484; 85025; 87040; 87086; 93005; G0378; J0692; J2270; J2405; J2470; J2543; J3490; J7070

== ENCOUNTER → 2025-02-19 | Outpatient (CLI) | payer MEDICARE ==
[~2025-02-19] MED LIST changes: +BISO-1 PO; +FLUT1BLS3 PO; +FOLI1TAB85 PO; -METF-446 PO; -ROSU40 PO; +ROSU40TA88 PO; -VERA180T61 PO
--- NOTE | 2025-02-19 09:47 | HMCIMG ---
MAMMO SCREENING BILATERAL HISTORY: Screening mammogram. COMPARISON: 01/10/2024 TECHNIQUE: Bilateral screening mammogram with CAD was performed with craniocaudal and mediolateral oblique projections. FINDINGS: There are scattered areas of fibroglandular density. Scattered microcalcifications are again seen in the right breast unchanged. There is no evidence of a dominant mass, or suspicious microcalcification. There is no evidence of nipple retraction or skin thickening. IMPRESSION: 1. Stable mammogram. Patient was entered into a reminder system with a target due date for their next mammogram. BI-RADS: CATEGORY 2: BENIGN FINDINGS Recommend monthly self breast exam as well as annual clinical examination. A negative x-ray should not delay biopsy if a dominant or clinically suspicious mass is present, since 8-10% of cancers are not identified by mammography. Dense breasts particularly, may obscure an underlying neoplasm. Some of these may be detected clinically and therefore, clinical examination is an essential part of breast evaluation.
== END | disposition home or self-care (01) ==
LOC: RAH 08:09
PROVIDERS: ATTEND Family Medicine
DX: Z12.31 Encounter for screening mammogram for malignant neoplasm of breast (principal); R92.30 Dense breasts, unspecified; R92.1 Mammographic calcification found on diagnostic imaging of breast
CPT/HCPCS: 77067